=== PATIENT | female | born 1945 | race Caucasian/White ===

== ENCOUNTER 2017-09-18 09:45 | Emergency (ER) | payer OTHER ==
[~2017-09-18] VITALS: Ht 157.5 cm; Wt 59.3 kg
[~2017-09-18 09:45] MED LIST: AMOX875T PO; HYDR-3583 PO; SIMV20TA PO
[2017-09-18 09:49] VITALS: BP 125/59; PULSE 85; RESP 16; TEMP 97.7; O2SAT 98
[2017-09-18] MEDS ORDERED: methylPREDNISolone SOD SUCC 125 MG/2 ML VIAL IV PUSH ONE (10:00)
[2017-09-18] MEDS ORDERED: SODIUM CHLORIDE 0.9% FLUSH 10 ML FLUSH IVF PRN (10:00)
[2017-09-18 10:04] VITALS: RESP 20; O2SAT 98
--- NOTE | 2017-09-18 10:07 | PD ---
HPI Chief Complaint: Respiratory Symptoms Time Seen by Provider: 09:59 Travel History International Travel<30 days: No Contact w/Intl Traveler<30days: No Traveled to known affect area: No History of Present Illness HPI 71 y/o female presents with cough and congestion and wheezing over the past 6 days. She states she has been using her inhaler without relief. She denies any other concurrent complaints. She states she feels worse when she moves around. She denies other modifying factors. She states her doctor did a chest x-ray 2 weeks ago that was clear and when she called them they advised her to come here to get checked out. Quality is wheezing. Severity is progressive. PFSH Past Medical History Hx Anticoagulant Therapy: Yes (325mg asa ) Cardiovascular Problems: Yes High Cholesterol: Yes Coronary Artery Disease: Yes Hypertension: Yes ?: Not Past Surgical History Cholecystectomy: Yes Coronary Stent: Yes Hysterectomy: Yes Social History Alcohol Use: Yes (1-2 BEERS DAILY) Tobacco Use: No Substance Use: No Allergies-Medications (Allergen,Severity, Reaction): Coded Allergies: No Known Allergies (Unverified Adverse Reaction, Unknown, 09/18/17) Reported Meds & Prescriptions Reported Meds & Active Scripts Active Prednisone 50 Mg Tab 50 Mg PO DAILY 5 Days first dose 09/19 Proair Hfa 8.5 GM Inh (Albuterol Sulfate) 90 Mcg/Act Aer 2 Puff INH Q4-6H PRN 108 mcg/actuation Amoxicillin 875 Mg Tab 875 Mg PO BID Reported Diovan (Valsartan) 160 Mg Tab 180 Mg PO DAILY Omeprazole 20 Mg Tab 20 Mg PO DAILY Isosorbide Dinitrate 10 Mg Tab 10 Mg PO BID Oxycodone (Oxycodone HCl) 10 Mg Tab 10 Mg PO Q6HR Metoprolol Tartrate 25 Mg Tab 30 Mg PO BID Hydrocodone-Acetaminophen 10-325 mg Tab 1 Tab PO Q6H PRN Simvastatin 20 Mg Tab 20 Mg PO DAILY Review of Systems Except as stated in HPI: all other systems reviewed are Neg Physical Exam Narrative GENERAL: 71-year-old female in no apparent distress SKIN: Focused skin assessment warm/dry. HEAD: Atraumatic. Normocephalic. EYES: Pupils equal and round. No scleral icterus. No injection or drainage. ENT: No nasal bleeding or discharge. Mucous membranes pink and moist. NECK: Trachea midline. No JVD. CARDIOVASCULAR: Regular rate and rhythm. RESPIRATORY: No accessory muscle use. Expiratory wheezing bilaterally. MUSCULOSKELETAL: No obvious deformities. No clubbing. No cyanosis. No edema. NEUROLOGICAL: Awake and alert. Moves all extremities. Normal speech. PSYCHIATRIC: Appropriate mood and affect; insight and judgment normal. Data Data Last Documented VS Vital Signs Date Time Temp Pulse Resp B/P (MAP) Pulse Ox O2 Delivery O2 Flow Rate FiO2 09/18/17 11:49 82 18 136/70 (92) 99 09/18/17 10:04 Room Air 09/18/17 09:49 97.7 Orders Orders Complete Blood Count With Diff (09/18/17 09:59) Basic Metabolic Panel (Bmp) (09/18/17 09:59) Influenzae A/B Antigen (09/18/17 09:59) Iv Access Insert/Monitor (09/18/17 09:59) Ecg Monitoring (09/18/17 09:59) Oximetry (09/18/17 09:59) Chest, Pa & Lat (09/18/17 09:59) Sodium Chloride 0.9% Flush (Ns Flush) (09/18/17 10:00) Methylprednisolone So Succ Inj (Solumedr (09/18/17 10:00) Albuterol-Ipratropium Neb (Duoneb Neb) (09/18/17 10:00) Albuterol-Ipratropium Neb (Duoneb Neb) (09/18/17 11:15) Ed Discharge Order (09/18/17 11:40) Labs Laboratory Tests Test 09/18/17 10:20 White Blood Count 3.7 TH/MM3 Red Blood Count 3.66 MIL/MM3 Hemoglobin 12.5 GM/DL Hematocrit 36.9 % Mean Corpuscular Volume 101.0 FL Mean Corpuscular Hemoglobin 34.2 PG Mean Corpuscular Hemoglobin Concent 33.9 % Red Cell Distribution Width 13.7 % Platelet Count 231 TH/MM3 Mean Platelet Volume 6.0 FL Neutrophils (%) (Auto) 42.1 % Lymphocytes (%) (Auto) 34.6 % Monocytes (%) (Auto) 15.6 % Eosinophils (%) (Auto) 6.8 % Basophils (%) (Auto) 0.9 % Neutrophils # (Auto) 1.5 TH/MM3 Lymphocytes # (Auto) 1.3 TH/MM3 Monocytes # (Auto) 0.6 TH/MM3 Eosinophils # (Auto) 0.3 TH/MM3 Basophils # (Auto) 0.0 TH/MM3 CBC Comment DIFF FINAL Differential Comment Blood Urea Nitrogen 10 MG/DL Creatinine 0.68 MG/DL Random Glucose 110 MG/DL Calcium Level 8.8 MG/DL Sodium Level 138 MEQ/L Potassium Level 3.5 MEQ/L Chloride Level 105 MEQ/L Carbon Dioxide Level 25.6 MEQ/L Anion Gap 7 MEQ/L Estimat Glomerular Filtration Rate 85 ML/MIN MDM Medical Decision Making Medical Screen Exam Complete: Yes Emergency Medical Condition: Yes Medical Record Reviewed: Yes (past history confirmed) Interpretation(s) CBC & BMP Diagram 09/18/17 10:20 Calcium Level 8.8 cxr no acute Differential Diagnosis Pneumonia, influenza, asthma exacerbation Narrative Course Will check blood work, influenza, chest x-ray and dose with Solu-Medrol and DuoNeb's and reevaluate ED workup without emergent process. Patient is feeling better after breathing treatments. She has improved aeration with faint wheezing. Will repeat one more DuoNeb and reassess Patient's vitals are stable. Patient is wanting to go home. We'll provide refill of albuterol inhaler and steroid prescription. Patient denies any new complaints and states that they are feeling better. Patient happy with care, all questions answered. Patient knows that follow up is incumbent on them and to return to the emergency room immediately if new or worsening symptoms develop. Patient given strict return precautions, vitals reviewed and are normal , agrees to further workup as an outpatient. Diagnosis Primary Impression: Reactive airway disease Qualified Codes: J45.901 - Unspecified asthma with (acute) exacerbation Additional Impression: Upper respiratory infection Qualified Codes: J06.9 - Acute upper respiratory infection, unspecified Patient Instructions: General Instructions Additional Instructions: return as needed, follow with primary this week for recheck, albuterol every 4 hours as needed Med/Other Pt SpecificInfo: Prescription(s) given Scripts Prednisone (Prednisone) 50 Mg Tab 50 MG PO DAILY for 5 Days, #5 TAB 0 Refills first dose 09/19 Prov: Gely San MD 09/18/17 Albuterol 8.5 GM Inh (Proair Hfa 8.5 GM Inh) 90 Mcg/Act Aer 2 PUFF INH Q4-6H Y for SHORTNESS OF BREATH, #1 INHALER 0 Refills 108 mcg/actuation Prov: Gely San MD 09/18/17 Disposition: 01 DISCHARGE HOME Condition: Stable Gely San MD Sep 18, 2017 10:07
[2017-09-18] MEDS ORDERED: OMEP20TA93 PO (10:11)
[2017-09-18] MEDS ORDERED: OXYC-395 PO (10:11)
[2017-09-18] MEDS ORDERED: ALBUAER3 INH ×2 (10:11→11:13)
[2017-09-18] MEDS ORDERED: METO25TA3 PO (10:11)
[2017-09-18] MEDS ORDERED: ISOS10TA PO (10:11)
[2017-09-18] MEDS ORDERED: DIOV160T6 PO (10:11)
[2017-09-18] MEDS: RESP: ALBUTEROL 2.5 MG/IPRATROPIUM 0.5 MG NEB (SCH) INH (10:19)
[2017-09-18 10:26] LABS: AUTOMATED NEUTROPHIL # 1.5 TH/MM3 (1.8-7.7); BASOPHIL % 0.9 % (0.0-2.0); EOSINOPHIL # 0.3 TH/MM3 (0-0.4); EOSINOPHIL % 6.8 % (0.0-4.0); HEMATOCRIT 36.9 % (35.0-46.0); HEMOGLOBIN 12.5 GM/DL (11.6-15.3); LYMPH % 34.6 % (9.0-44.0); LYMPHOCYTE # 1.3 TH/MM3 (1.0-4.8); MEAN CORPUSCULAR HEMOGLOBIN 34.2 PG (27.0-34.0); MEAN CORPUSCULAR HGB CONC 33.9 % (32.0-36.0); MONO % 15.6 % (0.0-8.0); MONOCYTE # 0.6 TH/MM3 (0-0.9); NEUT % 42.1 % (16.0-70.0); PLATELET COUNT 231 TH/MM3 (150-450); RED BLOOD COUNT 3.66 MIL/MM3 (4.00-5.30); RED CELL DISTRIBUTION WIDTH 13.7 % (11.6-17.2); WHITE BLOOD COUNT 3.7 TH/MM3 (4.0-11.0)
[2017-09-18 10:48] LABS: CALCIUM 8.8 MG/DL (8.5-10.1)
[2017-09-18 10:49] LABS: BICARBONATE 25.6 MEQ/L (21.0-32.0)
[2017-09-18 10:52] LABS: CREATININE 0.68 MG/DL (0.50-1.00)
--- NOTE | 2017-09-18 11:05 | RADRPT ---
EXAM DATE/TIME: 09/18/2017 10:48 [facility] COMPARISON: No previous studies available for comparison. INDICATIONS : Short of breath. MEDICAL HISTORY : Hypertension. Cardiovascular disease. SURGICAL HISTORY : None. ENCOUNTER: Initial ACUITY: 4 - 6 days PAIN SCORE: 0/10 LOCATION: Bilateral chest FINDINGS: PA and lateral views of the chest demonstrate the lungs to be symmetrically aerated without evidence of mass, infiltrate or effusion. The cardiomediastinal contours are unremarkable. Osseous structure s are intact. CONCLUSION: 1. No active disease. Prominent costal cartilage calcifications. Justin Shaw MD on September 18, 2017 at 11:00 Board Certified Radiologist. This report was verified electronically.
[2017-09-18] MEDS ORDERED: PRED50 PO (11:13)
[2017-09-18] MEDS ORDERED: RESP: ALBUTEROL 2.5 MG/IPRATROPIUM 0.5 MG NEB (SCH) NEB ONE (11:15)
[2017-09-18 11:49] VITALS: BP 136/70
== END 2017-09-18 11:56 | disposition home or self-care (01) ==
LOC: PHED 09:45
DX: J45.901 Unspecified asthma with (acute) exacerbation (principal); J06.9 Acute upper respiratory infection, unspecified; E78.00 Pure hypercholesterolemia, unspecified; I10 Essential (primary) hypertension; I25.10 Atherosclerotic heart disease of native coronary artery without angina pectoris; Z95.5 Presence of coronary angioplasty implant and graft; Z79.82 Long term (current) use of aspirin
CPT/HCPCS: 71046; 80048; 85025; 87804; 94640; 94664; 96374; 99284; J2930